=== PATIENT | male | born 1985 | race Caucasian/White ===

== ENCOUNTER 2020-12-19 21:16 | Emergency (ER) | payer MEDICAID ==
[~2020-12-19] VITALS: Ht 177.8 cm; Wt 97.5 kg
[2020-12-19 21:20] VITALS: BP_SYST 140
--- NOTE | 2020-12-19 21:20 | NUR ---
Patient triaged and placed in waiting room. VSS and patient appears in no acute distress at this time. Awaiting available bed, and MD notified of need for MSE.
--- NOTE | 2020-12-20 01:05 | NUR ---
Placed in room 5 . Placed on conveyor monitor, blood pressure machine and pulse oximeter. To gown for exam. Side rails up. Report given to Paulina SMITH.
--- NOTE | 2020-12-20 01:13 | NUR ---
Assumed total care of patient. Patient AAO x4 from home c/o intermittent left sided chest pain x3 months. Patient reports his chest pain started after he received his COVID vaccine. Patient states he came to ER tonight because he "finally had time". Patient denies SOB, nausea, vomiting, aggravating or relieving factors. Patient is resting comfortably in gurney, placed on cardiac rn, VSS, breathing even and unlabored, no signs of acute distress noted. Will continue to monitor.
--- NOTE | 2020-12-20 01:25 | NUR ---
Dr. Peres bedside for pt eval
--- NOTE | 2020-12-20 01:58 | NUR ---
Patient transported to radiology via walking, accompanied by
--- NOTE | 2020-12-20 02:03 | NUR ---
Returned from radiology, back to [facility].
[2020-12-20 02:36] VITALS: BP_SYST 136
--- NOTE | 2020-12-20 02:36 | NUR ---
Patient given written and verbal discharge instructions and verbalizes understanding. ER MD discussed with patient the results and treatment provided. Patient in stable condition. ID arm band removed. no Rx given. Patient educated on pain management and to follow up with PMD. Pain Scale 0/10. Opportunity for questions provided and answered. Medication side effect fact sheet provided.
== END 2020-12-20 02:36 | disposition home or self-care (01) ==
LOC: SED 21:16
DX: T88.1XXA Other complications following immunization, not elsewhere classified, initial encounter (principal); R07.89 Other chest pain
CPT/HCPCS: 71046-TC; 93005; 99283